=== PATIENT | female | born 1960 | race Caucasian/White ===

== ENCOUNTER 2016-09-12 03:24 | Inpatient (IN) | payer OTHER ==
[~2016-09-12] VITALS: Ht 167.6 cm; Wt 70.8 kg
[2016-09-12] MEDS ORDERED: IMITREX5 M1 PO (06:49)
--- NOTE | 2016-09-12 08:45 | Admission Core Measures ---
Admission Meds I reviewed the following Meds: Current Medications Sig/Corby Start time Last Medication Dose Stop Time Status Admin Acetaminophen 975 MG ONCE 09/12 0000 NR (Tylenol) 09/12 2358 Cefazolin Sodium 2,000 MG ONCE 09/12 NR (Kefzol-Ancef Inj) 09/12 2358 Oxycodone HCl 10 MG ONCE 09/12 0000 NR (Roxicodone) 09/12 2358 Acute Coronary Syndrome Inclusion Criteria ACS Diagnosis No Inpatient Core Measures LDL Reminder: If No, please order W/I first 24hr of stay Congestive Heart Failure Inclusion Criteria CHF Diagnosis No Cerebrovascular accident Inclusion Criteria CVA/TIA Diagnosis No Inpatient Core Measures Bedside Swallow Eval Reminder: If BSE failed, place ST order Antithrombotic Reminder: Order Antithrombotic Medication by end of day 2 Antithrombotic Reminder: Document Reason Antithrombotic Not ordered by end of day 2 AFIB/Flutter Reminder: If Present, add to problem list AFIB/Flutter Reminder: Order Anticoag Medication for pts with AFIB/Flutter Atherosclerosis Reminder: If Present, add to problem list LDL Reminder: If No, please order W/I first 24hr of stay PT Order Reminder: If No, please order Venous thromboembolism Inpatient Core Measures VTE Risk Factors: Age > 40, Surgery VTE Prophylaxis Ordered Inpt Mech & Pharm No Mech VTE prophylaxis d/t No contraindications No VTE Pharm Prophylaxis d/t No contraindications Inclusion Criteria - Per Current guidelines, there needs to be overlap - treatment for the first 5 days of Warfarin therapy. - Parenteral Anticoagulation (IV or SC) needs to be - given along with Warfarin therapy. VTE Diagnosis No VTE Type NONE VTE Confirmed by (Test) NONE Problem List As ranked by this Provider includes Assessment & Plan 1. Status post total hip replacement, left HOME MEDS Home Med List Sumatriptan (Imitrex) 5 MG SPRAY 1 TAB PO DAILY PRN MIGRAINES (Reported)
[2016-09-12] MEDS ORDERED: COLACE100 M1 PO (08:58)
[2016-09-12] MEDS ORDERED: ADULT LOW DOSE81 MG PO (08:58)
[2016-09-12] MEDS ORDERED: DILAUDID4 M1 PO (08:58)
[2016-09-12] MEDS ORDERED: MS CONTIN15 M2 PO (08:58)
[2016-09-12] MEDS ORDERED: MIRALAX17 G1 PO (08:58)
--- NOTE | 2016-09-12 09:00 | Patient Discharge Instructions ---
Discharge Instructions General Discharge Information You were seen/treated for: hip pain You had these procedures: left total hip replacement Watch for these problems: See pre printed sheet Do not soak the wound: Yes Other wound care: See pre printed sheet Diet Continue normal diet: Yes Activity Activity Self Limited: Yes Activity Limited to: Weight bear as tolerated Acute Coronary Syndrome Inclusion Criteria At DC or during hospital stay patient has or had the following: ACS DIAGNOSIS No Discharge Core Measures Meds if any: Prescribed or Continued at Discharge Meds if any: NOT Prescribed or Continued at Discharge Congestive Heart Failure Inclusion Criteria At DC or during hospital stay patient has or had the following: CHF DIAGNOSIS No Discharge Core Measures Meds if any: Prescribed or Continued at Discharge Meds if any: NOT Prescribed or Continued at Discharge Cerebrovascular accident Inclusion Criteria At DC or during hospital stay patient has or had the following: CVA/TIA Diagnosis No Discharge Core Measures Meds if any: Prescribed or Continued at Discharge Meds if any: NOT Prescribed or Continued at Discharge Venous thromboembolism Inclusion Criteria VTE Diagnosis No VTE Type NONE VTE Confirmed by (Test) NONE Discharge Core Measures - Per Current guidelines, there needs to be overlap - treatment for the first 5 days of Warfarin therapy. - If discharged on Warfarin prior to 5 days of - overlap therapy, the patient will need to be - assessed for post discharge needs including - *Post discharge parental anticoagulation - *Warfarin and/or parental anticoagulation education - *Follow up date to check INR post discharge At least 5 days overlap therapy as Inpatient No Meds if any: Prescribed or Continued at Discharge Note: Overlap Therapy is Warfarin and Anticoagulant Meds if any: NOT Prescribed or Continued at Discharge
--- NOTE | 2016-09-12 09:04 | Surg Short-stay <48hrs Dis Sum ---
See Addendum Visit Information Visit Dates Admission Date: 09/12/16 Discharge Date: 09/12/2016 Surgical Short Stay DC Summary Admission Diagnosis: DJD Final Diagnosis: same, s/p left thr Procedure(s): L THR - see operative report Summary/Significant Findings: Pt underwent L THR by Dr Betts and was brought to the recovery room in stable condition. Post op she was able to tolerated a diet, she was able to void spontaneously and her pain was controlled on oral medication. She was seen by PT and deemed stable for discharge home with services. Condition at Discharge: good Discharge Disposition: home health services Discharge instructions provided to patient/family: Yes Post discharge follow-up plan: Keep scheduled appointment, call sooner if needed
--- NOTE | 2016-09-12 10:53 | RADIOLOGY REPORT ---
EXAMINATION: XR HIP, LEFT CLINICAL INFORMATION: Status post left total hip replacement, anterior COMPARISON: None TECHNIQUE: AP and crosstable lateral views of the left hip. FINDINGS: Prosthetic components of the left total hip arthroplasty are appropriately aligned. No periprosthetic fracture. Gas from recent surgery is present in the surrounding soft tissues. IMPRESSION: Normal postoperative appearance of the left total hip prosthesis.
[2016-09-12 11:30] VITALS: BP 102/64
--- NOTE | 2016-09-12 13:01 | PN- Orthopedic ---
Subjective Subjective: Post op check OOB in chair, transferred to chair but no further ambulation yet. Pain well controlled at this time Tolerating diet Objective Vital Signs and I&Os Vital Signs Date Time Temp Pulse Resp B/P Pulse O2 O2 Flow FiO2 Ox Delivery Rate 09/12 1130 97.7 60 20 102/64 98 Room Air Intake & Output 09/12 1600 09/12 0800 09/12 0000 09/11 1600 09/11 0800 09/11 0000 Intake Total Output Total Balance Patient 156 lb Weight Physical Exam: VSS, afebrile Has not voided yet post op General: alert and oriented times three Chest: clear anteriorly bilaterally, RRR Abd: soft, good bs Ext: warm, no edema, positive sensate BLE Wound: dressed, dry, ice pack in place Assessment/Plan Assessment/Plan 56 yo female s/p L KERI pain mgmt await void PT - wbat dc once cleared by PT Core Measures/Miscellaneous Venous Thromboembolism VTE Risk Factors: Age > 40, Surgery VTE Contraindications: No Contraindications VTE Prophylaxis Ordered Inpt: Mech & Pharm VTE Diagnosis: No VTE Type: NONE VTE Confirmed by (Test): NONE Beta Alisson Is Beta Alisson a Home Med? No Antibiotics Is Patient on Antibiotics? Yes (24 hrs post op)
[2016-09-12 15:36] VITALS: BP 88/62
--- NOTE | 2016-09-12 16:43 | Operative Report ---
Operative/Inv Procedure Report Surgery Date: 09/12/16 Name of Procedure: Left total hip replacement Pre-Operative Diagnosis: Primary left hip DJD Post-Operative Diagnosis: Same Estimated Blood Loss: 400 Surgeon/3D Technologist: YAAKOV BLAKE MD Anesthesia: block Operative/Procedure Note Note: Description of Procedure: The patient was taken to the operating room and positively identified. After induction of spinal anesthesia and administration of appropriate pre-operative antibiotics, the patient was positioned supine on the operating room table and all bony prominences were well padded. After performing a surgical timeout, the left lower extremity was prepped and draped in the usual sterile fashion. A direct anterior approach was made to the left hip. The incision was carried sharply through superficial soft tissues to the level of the fascia. Meticulous hemostasis was maintained with Bovie electocautery. The fascia over the tensor fascia ronny muscle was opened sharply and the interval between the TFL and the sartorius was entered bluntly taking care to stay lateral to the lateral femoral cutaneous nerve. Retractors were placed around the femoral neck and the pericapsular fat was identified. The ascending branches of the lateral femoral circumflex vessels were identified and carefully coagulated. The pericapsular fat and anterior capsule were then resected. A napkin ring osteotomy was performed and the femoral head was removed without difficulty. Attention was then turned to the acetabulum. After appropriate placement of retractors, the acetabulum was exposed. Soft tissue was cleaned from the acetabular margin and notch. Overhanging osteophytes were removed and the teardrop was exposed. Due to the fact that she had severe dysplasia a new acetabulum had to be created in the anatomic position. Utilizing a very small reamer the new acetabulum was created at the inferior aspect of the teardrop down to the medial wall. This was then sequentially increased in size to accommodate a size 54 mm Renard Trident Tritanium hemispherical shell. This was then impacted into place the appropriate position. Good lateral coverage was obtained by maximally medializing the implant. Multiple screws were used for supplemental fixation. It was then fit with a 36 mm Trident X3 zero degree polyethylene insert. Attention was then turned to the femur. After performing the appropriate ligament releases, the proximal femur was exposed. It was then sequentially broached to accept a size 4 Renard accolade 2 stem. This was trialed for leg length and stability. The trial component was removed and the final component was impacted into place. The trunnion was carefully cleaned and fit with a 32 mm, -4 Biolox delta ceramic femoral head. The hip was reduced and put through a full range of motion and found to be stable. The articular space was then irrigated with sterile saline. The periarticular soft tissues were infilitrated with Marcaine. The fascial layer was closed with interrupted #1 vicryl suture and the skin was re-approximated with interrupted 2 -0 vicryl. The skin was closed with a running 3-0 V-Lock suture. Steri-strips and a sterile dressing were applied. The patient was awakened and taken to the recovery room in satisfactory condition.
[2016-09-12 17:10] VITALS: BP 92/62
[2016-09-12 17:14] VITALS: BP 92/62
== END 2016-09-12 17:45 | disposition home health service (06) | DRG 470 ==
LOC: ENRESERVTM → ENRESERVDT → SDA 03:24 → ENPENDDIS 03:24 → SDA 07:00 → 2NA 11:21
PROVIDERS: ADMIT Orthopaedic Surgery
PROC: 0SRB04A Replacement of Left Hip Joint with Ceramic on Polyethylene Synthetic Substitute, Uncemented, Open Approach (ICD-10-PCS; principal; 2016-09-12)
DX: M16.12 Unilateral primary osteoarthritis, left hip (principal); E55.9 Vitamin D deficiency, unspecified
CPT/HCPCS: 2NAP; 73502-LT; 88304; 97112-GO; 97116-GO; 97162-GP; 97530-GO; J0690; J0735; J2405; J7042

== ENCOUNTER 2016-12-28 05:11 | Inpatient (IN) | payer OTHER ==
[~2016-12-28] VITALS: Ht 167.6 cm; Wt 70.8 kg
[~2016-12-28 05:11] MED LIST: ADULT LOW DOSE81 MG PO; COLACE100 M1 PO; DILAUDID4 M1 PO; IMITREX5 M1 PO; MIRALAX17 G1 PO; MS CONTIN15 M2 PO
--- NOTE | 2016-12-28 11:16 | Admission Core Measures ---
Admission Meds I reviewed the following Meds: Current Medications Sig/Corby Start time Last Medication Dose Stop Time Status Admin Acetaminophen 975 MG ONE 12/28 0000 NR (Tylenol) 12/28 2358 Cefazolin Sodium 2,000 MG ONCE 12/28 NR (Kefzol-Ancef Inj) 12/28 2358 Oxycodone HCl 10 MG ONCE 12/28 0000 NR (Roxicodone) 12/28 2358 Acute Coronary Syndrome Inclusion Criteria ACS Diagnosis No Inpatient Core Measures LDL Reminder: If No, please order W/I first 24hr of stay Congestive Heart Failure Inclusion Criteria CHF Diagnosis No Cerebrovascular accident Inclusion Criteria CVA/TIA Diagnosis No Inpatient Core Measures Bedside Swallow Eval Reminder: If BSE failed, place ST order Antithrombotic Reminder: Order Antithrombotic Medication by end of day 2 Antithrombotic Reminder: Document Reason Antithrombotic Not ordered by end of day 2 AFIB/Flutter Reminder: If Present, add to problem list AFIB/Flutter Reminder: Order Anticoag Medication for pts with AFIB/Flutter Atherosclerosis Reminder: If Present, add to problem list LDL Reminder: If No, please order W/I first 24hr of stay PT Order Reminder: If No, please order Venous thromboembolism Inpatient Core Measures VTE Risk Factors: Age > 40, Surgery No [facility] VTE prophylaxis d/t No contraindications No VTE Pharm Prophylaxis d/t No contraindications Inclusion Criteria - Per Current guidelines, there needs to be overlap - treatment for the first 5 days of Warfarin therapy. - Parenteral Anticoagulation (IV or SC) needs to be - given along with Warfarin therapy. VTE Diagnosis No VTE Type NONE VTE Confirmed by (Test) NONE Problem List As ranked by this Provider includes Assessment & Plan 1. Status post total hip replacement, right HOME MEDS Home Med List No Known Home Medications
[2016-12-28] MEDS ORDERED: COLACE100 M1 PO (11:26)
[2016-12-28] MEDS ORDERED: MIRALAX17 G1 PO (11:26)
[2016-12-28] MEDS ORDERED: MS CONTIN15 M2 PO (11:26)
[2016-12-28] MEDS ORDERED: ASPIRIN325 M2 PO (11:26)
--- NOTE | 2016-12-28 11:29 | Patient Discharge Instructions ---
Discharge Instructions General Discharge Information You were seen/treated for: Right hip degenerative joint disease You had these procedures: Right total hip arthroplasty Watch for these problems: Significantly increased pain, difficulty ambulating, or temperatures over 101 Increased redness or drainage from incision No bath, but you may shower: Yes Other wound care: Daily dry dressing change Special Instructions: See preprinted information packet Diet Continue normal diet: Yes Activity Activity Self Limited: Yes Other activity limits: Ambulate using walker as instructed by physical therapy No driving or operating heavy machinery until okay with your surgeon and off all pain medications Acute Coronary Syndrome Inclusion Criteria At DC or during hospital stay patient has or had the following: ACS DIAGNOSIS No Discharge Core Measures Meds if any: Prescribed or Continued at Discharge Meds if any: NOT Prescribed or Continued at Discharge Congestive Heart Failure Inclusion Criteria At DC or during hospital stay patient has or had the following: CHF DIAGNOSIS No Discharge Core Measures Meds if any: Prescribed or Continued at Discharge Meds if any: NOT Prescribed or Continued at Discharge Cerebrovascular accident Inclusion Criteria At DC or during hospital stay patient has or had the following: CVA/TIA Diagnosis No Discharge Core Measures Meds if any: Prescribed or Continued at Discharge Meds if any: NOT Prescribed or Continued at Discharge Venous thromboembolism Inclusion Criteria VTE Diagnosis No VTE Type NONE VTE Confirmed by (Test) NONE Discharge Core Measures - Per Current guidelines, there needs to be overlap - treatment for the first 5 days of Warfarin therapy. - If discharged on Warfarin prior to 5 days of - overlap therapy, the patient will need to be - assessed for post discharge needs including - *Post discharge parental anticoagulation - *Warfarin and/or parental anticoagulation education - *Follow up date to check INR post discharge At least 5 days overlap therapy as Inpatient No Meds if any: Prescribed or Continued at Discharge Note: Overlap Therapy is Warfarin and Anticoagulant Meds if any: NOT Prescribed or Continued at Discharge
--- NOTE | 2016-12-28 11:31 | Surg Short-stay <48hrs Dis Sum ---
Visit Information Visit Dates Admission Date: 12/28/16 Discharge Date: 12/28/16 Surgical Short Stay DC Summary Admission Diagnosis: Right hip degenerative joint disease Final Diagnosis: Same Procedure(s): Right total hip arthroplasty Summary/Significant Findings: The patient was admitted on 12/28/2016. Later that day she was brought to the operating theater where she underwent a right total hip arthroplasty. Postoperatively the patient progressed as expected, her pain was under adequate control, and she ambulated safely with physical therapy. The patient voided postoperatively and tolerated a diet. The patient was discharged with an uneventful hospital course. Condition at Discharge: Stable Discharge Disposition: home health services Discharge instructions provided to patient/family: Yes Post discharge follow-up plan: Call the office to be seen in 6 weeks or earlier if needed
--- NOTE | 2016-12-28 15:23 | RADIOLOGY REPORT ---
EXAMINATION: XR HIP, RIGHT CLINICAL INFORMATION: Total hip replacement. COMPARISON: None TECHNIQUE: Two views of the right hip. FINDINGS: The components of the total hip arthroplasty are in their expected positions. The acetabular cup is stabilized by two superior screws. The femoral head prosthesis is well centered within the acetabular cup which has estimated lateral version of 42 degrees and anteversion of 35 degrees. The femoral stem is well centered in the medullary cavity of the proximal femoral diaphysis. No periprosthetic fracture. There is postoperative soft tissue emphysema of the right hip. IMPRESSION: Satisfactory position and alignment of components of the right total hip arthroplasty. No acute periprosthetic fracture.
--- NOTE | 2016-12-28 15:36 | PN- Student ---
WHITLEY HAMILTON 12/28/16 1524: Subjective Subjective: Post Op Check: Awake, alert, moving legs but has not stood yet Slight pain at incision site but no pain otherwise Denies chest pain/SOB, n/v/d Drinking water Anticipates getting up and going home soon Objective Objective: Vitals: BP: 121/74 Pulse: 72 bpm Temp: 97 SpO2: 98 on RA General: Awake, alert, oriented Lungs: CTAB, no wheeze/rhonchi/rales Heart: RRR, no M,R,G Extremities: warm, no erythema/edema, no calf tenderness bilaterally Wound site: right hip dressing clean, dry and intact, non-tender, no erythema/ edema Assessment/Plan Assessment: This is a 56 y/o female POD #0 Right Total Hip Replacement recovering as expected. Plan: Pain medication PRN Regular diet PT - WBAT DVT ppx: ALPS in place, OOB, aspirin Abx perioperatively for infection prophylaxis CHAGO BELTRE 12/28/16 1551: Assessment/Plan Plan: agree with above NATANAEL-S note anticipates discharge to home later today seen by PT in PACU, and cleared for discharge home awaiting transfer to floor for discharge must void and tolerate food prior to going home will d/w
[2016-12-28 17:02] VITALS: BP 116/70
[2016-12-28] MEDS ORDERED: DILAUDID2 M1 PO (17:23)
--- NOTE | 2016-12-28 18:00 | NUR ---
NURSING NOTE: PT ADMITTED AT 1648 FROM PACU VIA STRETCHER. PT AMBULATED FROM STRETCHER TO CHAIR W/RW. PT WAS ABLE TO HERIBERTO PO DIET AND VOIDED POST OP. PT PAIN CONTROLED. DISCHARGE INSTRUCTIONS GIVEN AND PRECRIPTIONS PICKED UP BY IN PHARMACY.
--- NOTE | 2016-12-28 19:28 | Operative Report ---
Operative/Inv Procedure Report Surgery Date: 12/28/16 Name of Procedure: Right total hip replacement Pre-Operative Diagnosis: Primary right hip DJD Post-Operative Diagnosis: Same Estimated Blood Loss: 500 Surgeon/Bulk Sugar Handler: HAYDEN HOUSE,YAAKOV Hudson Anesthesia: block Operative/Procedure Note Note: Description of Procedure: The patient was taken to the operating room and positively identified. After induction of spinal anesthesia and administration of appropriate pre-operative antibiotics, the patient was positioned supine on the operating room table and all bony prominences were well padded. After performing a surgical timeout, the right lower extremity was prepped and draped in the usual sterile fashion. A direct anterior approach was made to the right hip. The incision was carried sharply through superficial soft tissues to the level of the fascia. Meticulous hemostasis was maintained with Bovie electocautery. The fascia over the tensor fascia ronny muscle was opened sharply and the interval between the TFL and the sartorius was entered bluntly taking care to stay lateral to the lateral femoral cutaneous nerve. Retractors were placed around the femoral neck and the pericapsular fat was identified. The ascending branches of the lateral femoral circumflex vessels were identified and carefully coagulated. The pericapsular fat and anterior capsule were then resected. A napkin ring osteotomy was performed and the femoral head was removed without difficulty. Due to her severe acetabular and femoral dysplasia her femoral head was quite misshapen. Attention was then turned to the acetabulum. After appropriate placement of retractors, the acetabulum was exposed. It was noted to be extremely shallow and oblong in nature with minimal lateral coverage. Soft tissue was cleaned from the acetabular margin and notch. Overhanging osteophytes were removed and the teardrop was exposed. A new acetabulum was then created in the anatomic position , reaming medially to create lateral coverage. The new acetabulum was then fit with a 56 mm Renard Trident Tritanium Hemispherical shell. Several screws were used for supplemental fixation. The cup was then fit with a 36 mm Trident X3 zero degree polyethylene insert. Attention was then turned to the femur. After performing the appropriate ligament releases, the proximal femur was exposed. It was then sequentially broached to accept a size #4 Wallace accolade 2 stem. This was trialed for leg length and stability. The trial component was removed and the final component was impacted into place. The trunnion was carefully cleaned and fit with a 36 mm, +0 Biolox delta ceramic femoral head. The hip was reduced and put through a full range of motion and found to be stable. The articular space was then irrigated with sterile saline. The periarticular soft tissues were infilitrated with Marcaine. The fascial layer was closed with interrupted #1 vicryl suture and the skin was re-approximated with interrupted 2 -0 vicryl. The skin was closed with a running 3-0 V-Lock suture. Steri-strips and a sterile dressing were applied. The patient was awakened and taken to the recovery room in satisfactory condition.
== END 2016-12-28 18:08 | disposition home health service (06) | DRG 470 ==
LOC: SDA 05:11 → ENRESERV 16:16 → ENTRNSPT 16:28 → 2NB 16:43 → CMPTRNSPT 17:12 → 2NB 18:08
PROVIDERS: ADMIT Orthopaedic Surgery
PROC: 0SR904A Replacement of Right Hip Joint with Ceramic on Polyethylene Synthetic Substitute, Uncemented, Open Approach (ICD-10-PCS; principal; 2016-12-28)
DX: M16.11 Unilateral primary osteoarthritis, right hip (principal)
CPT/HCPCS: 2NBSP; 73502-RT; 88304; 97116-GO; 97161-GP; 97530-GO; J0131; J0690; J0735; J1885; J2405; J2550; J7042